=== PATIENT | male | born 1980 | race Two or more races ===

== ENCOUNTER 2023-02-17 18:31 | Inpatient (IN) | payer OTHER ==
[~2023-02-17] VITALS: Ht 170.2 cm; Wt 59.0 kg
[2023-02-17 19:54] LABS: HEMATOCRIT 39.3 % (39.0-48.0); HEMOGLOBIN 13.3 g/dL (13-16.00); MEAN CORPUSCULAR HEMOGLOBIN 30.8 pg (27.00-32.0); MEAN CORPUSCULAR HGB CONC 33.9 g/dl (32.0-36.0); PLATELET COUNT 153 K/uL (150-450); RED BLOOD COUNT 4.32 M/uL (4.00-6.00); RED CELL DISTRIBUTION WIDTH 13.6 % (11.5-14.5)
[2023-02-17 20:26] LABS: CREATININE SERUM 1.19 mg/dL (0.70-1.30); GFR 66.41; POTASSIUM 3.92 mEq/L (3.5-5.1)
[2023-02-17 22:22] LABS: PH,URINE 5.5 (5.0-8.0); URINE APPEARANCE Cloudy; URINE BILIRRUBIN Negative (NEGATIVE); URINE BLOOD Negative; URINE COLOR Yellow; URINE GLUCOSE Negative (NEGATIVE); URINE LEUKOCYTE Negative; URINE NITRATE Negative; URINE PROTEIN 30 (NEGATIVE); URINE UROBILINOGEN 0.2 E.U./dl
[2023-02-17 22:25] LABS: URINE BACTERIA 23.9 uL (0.0-1933); URINE EPITHELIAL CELLS 8.7 uL (0.0-38.8); URINE RBC 11.9 uL (0.0-20.8); URINE WBC 4.9 uL (0.0-23.2)
[2023-02-18 02:43] LABS: INR 1.35; PARTIAL THROMBOPLASTIN TIME 28.5 SECONDS (22.0-34.0); PROTHROMBIN TIME 13.9 SECONDS (9.0-11.5)
[2023-02-18 08:29] LABS: ob POSITIVE (NEGATIVE)
[2023-02-21 06:59] LABS: ALBUMIN 2.8 gm/dL (3.4-5.0); BILIRUBIN TOTAL 0.4 mg/dL (0.3-1.2); CALCIUM 8.1 mg/dL (8.5-10.1); CREATININE SERUM 0.91 mg/dL (0.70-1.30); GFR 90.51; GLOBULINA 2.9 G/DL (2.4-3.5); POTASSIUM 3.88 mEq/L (3.5-5.1); TOTAL PROTEIN 5.7 gm/dL (6.4-8.2)
[2023-02-21 07:07] LABS: HEMATOCRIT 41.3 % (39.0-48.0); HEMOGLOBIN 14.1 g/dL (13-16.00); MEAN CELL VOLUME 90.6 fL (80.0-100.00); MEAN CORPUSCULAR HEMOGLOBIN 30.8 pg (27.00-32.0); PLATELET COUNT 163 K/uL (150-450); RED BLOOD COUNT 4.56 M/uL (4.00-6.00); RED CELL DISTRIBUTION WIDTH 13.5 % (11.5-14.5)
[2023-02-21 22:06] LABS: chla t Negative (Negative); neiss Negative (Negative)
[2023-02-22 06:06] LABS: GIARDIA LAMBLIA EIA Negative (Negative)
[2023-02-23 00:06] LABS: hav igm Negative (Negative); hcv Non Reactive (Non Reactive); hep b c Negative (Negative)
== END 2023-02-21 15:06 | disposition home or self-care (01) | DRG 371 ==
LOC: ER 18:31 → MEDJ 23:00
PROVIDERS: General Practice; Internal Medicine Infectious Disease; ADMIT Specialist; ATTEND Specialist
PROC: BW21ZZZ Computerized Tomography (CT Scan) of Abdomen and Pelvis (ICD-10-PCS; principal; 2023-02-17)
DX: A04.8 Other specified bacterial intestinal infections (principal); R65.21 Severe sepsis with septic shock; B20 Human immunodeficiency virus [HIV] disease; K62.5 Hemorrhage of anus and rectum; E86.0 Dehydration